=== PATIENT | male | born 1945 | race Caucasian/White ===

== ENCOUNTER 2017-02-15 18:24 | Emergency (ER) | payer OTHER ==
[~2017-02-15 18:24] MED LIST: ALBUAER2 INH; ASPEC81 PO; BRIM0.2S18 OPB; DIPH25CA65 PO; GLC5 PO; INSDGI SC; LATA0.009 OPB; LISI-461 PO; METF1000 PO; OMG3 PO; PARO30TA6 PO; PRLSR20 PO; ROSU20TA PO; [UNRECOGNIZED DRUG - CODE] PO
[2017-02-15 18:29] VITALS: TEMP 36.4
--- NOTE | 2017-02-15 20:02 | DIAGNOSTIC IMAGING REPORT ---
HEAD CT NONCONTRAST CT DOSE: 884.54 mGy.cm HISTORY: Mental status change right hand paresthesias, lightheaded - resolved TECHNIQUE: Multiaxial CT images of the head were performed without the use of intravenous contrast. Comparison: None. Findings: The paranasal sinuses and mastoid air cells are clear. The calvarium and skull base are intact. The ventricles and sulci are within normal limits. There is no mass, hematoma, midline shift, or acute infarct. Impression: No acute intracranial abnormality. Electronically signed by: Oskar Street M.D. 02/15/2017 8:01 PM Dictated Date/Time: 02/15/2017 8:00 PM
[2017-02-15] MEDS ORDERED: INSDGI SC (20:08)
[2017-02-15] MEDS ORDERED: LATA0.009 OP (20:08)
[2017-02-15] MEDS ORDERED: VNTHFA/IN INH (20:08)
[2017-02-15 20:15] LABS: BASO % 0.6 %; BASO ABS # 0.04 K/uL (0-0.2); COMPLETE YES; EOS % 3.6 %; HEMATOCRIT 38.6 % (42-52); LYMPH % 45.5 %; LYMPH ABS # 3.28 K/uL (1.2-3.4); MEAN CELL VOLUME 82.8 fL (80-100); MEAN CORPUSCULAR HEMOGLOBIN 29.6 pg (25-34); MEAN CORPUSCULAR HGB CONC 35.8 g/dl (32-36); MEAN PLATELET VOLUME 10.3 fL (7.4-10.4); MONO % 5.5 %; NEUT % 44.8 %; PLATELET COUNT 158 K/uL (130-400); RED BLOOD COUNT 4.66 M/uL (4.7-6.1); WHITE BLOOD COUNT 7.21 K/uL (4.8-10.8)
[2017-02-15 20:37] LABS: BLOOD UREA NITROGEN 15 mg/dl (7-18); BUN/CREATININE RATIO 10.2 (10-20); CALCIUM 8.8 mg/dl (8.5-10.1); CARBON DIOXIDE 27 mmol/L (21-32); CHLORIDE 98 mmol/L (98-107); GLUCOSE 395 mg/dl (70-99); POTASSIUM 4.4 mmol/L (3.5-5.1); SODIUM 133 mmol/L (136-145)
[2017-02-15] MEDS ORDERED: NovoLIN-R INSULIN PER UNIT CHARGE SC STA (20:40)
--- NOTE | 2017-02-15 20:44 | DIAGNOSTIC IMAGING REPORT ---
LUMBAR SPINE 5 VIEWS HISTORY: Pain acute on chronic low back pain COMPARISON: None. FINDINGS: There is no fracture. No subluxation. Considerable degenerative disc changes throughout. No evidence for compression deformity. IMPRESSION: Considerable degenerative disc change. No acute bony abnormality Electronically signed by: Oskar Street M.D. 02/15/2017 8:43 PM Dictated Date/Time: 02/15/2017 8:42 PM
--- NOTE | 2017-02-15 20:44 | DIAGNOSTIC IMAGING REPORT ---
CERVICAL SPINE 5 VIEWS HISTORY: . Seizures. Neuropathy. neck pain, hand paresthesias COMPARISON: None. FINDINGS: The cervical spine is visualized from C1 through the superior endplate of T1. There is no fracture. Is reversal of the normal cervical curvature. Disc degenerative changes noted throughout. No evidence for compression deformity. Osteophytic narrowing of the bulk of the neuroforamina bilaterally. Prevertebral soft tissues and the atlantodens interval are intact. IMPRESSION: 1. No acute bony abnormality. 2. Considerable degenerative change with moderate to rather significant osteophytic narrowing of the bulk of the neuroforamina bilaterally. 3. Muscle spasm. 4. Calcification of the carotid vasculature Electronically signed by: Oskar Street M.D. 02/15/2017 8:42 PM Dictated Date/Time: 02/15/2017 8:41 PM
--- NOTE | 2017-02-15 20:45 | DIAGNOSTIC IMAGING REPORT ---
RIGHT SHOULDER MIN 2 VIEWS ROUTINE CLINICAL HISTORY: right shoulder pain Right pain COMPARISON: None. DISCUSSION: Moderate degenerative narrowing right glenohumeral joint. Moderate degenerative change acromioclavicular joint. Inferior osteophytic reaction from the tip of the acromion. No evidence for fracture or dislocation. There is no evidence for soft tissue swelling. IMPRESSION: Significant degenerative change. No acute bony abnormality. Electronically signed by: Oskar Street M.D. 02/15/2017 8:43 PM Dictated Date/Time: 02/15/2017 8:43 PM
[2017-02-15 20:50] LABS: BETA-HYDROXYBUTYRATE 1.18 mg/dL (0.2-2.81)
[2017-02-15 21:09] VITALS: BP 118/70; PULSE 88; O2SAT 97
[2017-02-15] MEDS ORDERED: DIAZEPAM 5MG TAB PO STA (21:20)
--- NOTE | 2017-02-15 21:22 | EMERGENCY ROOM VISIT NOTE ---
History Report prepared by Timmy: Melissa Chavez Under the Supervision of: Dr. Emmett Mac M.D. First contact with patient: 18:42 Chief Complaint: ARM PAIN Stated Complaint: NUMBESS IN RT ARM & PINKY,LIGHTHEADED,BACK/NECK History of Present Illness The patient is a 71 year old male who presents to the Emergency Room with complaints of persistent numbness in the last three fingers of his right hand starting this early this morning. He recounts that he was watching TV last night when he began to feel dizzy and lightheaded. This morning he began to experience tingling and numbness in his hand. He also has some abdominal pain on the lower right side. He has chronic lower back pain, right shoulder pain, and neck pain which he is concerned about. He denies any headache, chest pain, shortness of breath, or nausea. He reports that he has not been taking his insulin for the past few days. Before he presented to the ED, he had a bottle of Pepsi. He denies any recent falls or head trauma. He denies any prolonged computer use. He reports he quit drinking 7 weeks ago. Source of History: patient Onset: this morning Position: finger(s) (last three fingers of right hand) Quality: numbness Timing: other (persistent) Associated Symptoms: + abdominal pain (lower right), + back pain (lower), + neck pain, No SOB, No chest pain, No headache, No nausea Note: Pt reports dizziness and lightheadedness. Pt reports chronic right shoulder pain. Review of Systems See HPI for pertinent positives & negatives. A total of 10 systems reviewed and were otherwise negative. Past Medical & Surgical Medical Problems: (1) Diabetes (2) Emphysema, unspecified (3) Hemorrhoids (4) Hiatal hernia Family History Diabetes mellitus FHx: gallbladder disease FHx: heart disease FHx: lung disease Hypertension Kidney disease Kidney stones Social History Smoking Status: Former Smoker Alcohol Use: occasionally Marital Status: in relationship Housing Status: lives with significant other Occupation Status: retired Current/Historical Medications Scheduled Aspirin (Aspirin EC Low Dose), 81 MG PO DAILY Brimonidine Tartrate (Brimonidine Tartrate), 1 DROP OPB AMHS Fish Oil (Fish Oil), 1,000 MG PO BID Glipizide (Glipizide), 5 MG PO BID Insulin Glargine (Lantus), 35 SC QPM Latanoprost (Xalatan 0.005% Oph Lauren), 1 DROPS OP HS Lisinopril (Lisinopril), 10 MG PO BID Metformin Hcl (Glucophage), 1,000 MG PO BIDM Multiple Vitamins W/ Minerals (Daily Vitamin Formula+Min), 1 TAB PO DAILY Omeprazole (Prilosec), 20 MG PO DAILY Paroxetine Hcl (Paroxetine Hcl), 30 MG PO BID Rosuvastatin Calcium (Crestor), 10 MG PO DAILY Scheduled PRN Albuterol Hfa (Ventolin Hfa), 2 PUFF INH QID PRN for Shortness of Breath Diazepam (Valium), 5-10 MG PO Q6H PRN for Pain Diphenhydramine Hcl (Benadryl Allergy), 25 MG PO BID PRN for Itching Allergies Coded Allergies: Atorvastatin (Verified Allergy, Unknown, Face turns red, 10/15/16) Iodinated Diagnostic Agents (Verified Allergy, Unknown, HIVES, 10/15/16) Uncoded Allergies: CONTRASTMEDIA (Allergy, Unknown, HIVES, 01/05/10) Physical Exam Vital Signs Date Time Temp Pulse Resp B/P Pulse Ox O2 Delivery O2 Flow Rate FiO2 02/15/17 21:09 88 20 118/70 97 Room Air 02/15/17 20:08 88 20 126/80 95 Room Air 02/15/17 18:29 36.4 78 20 146/88 93 Room Air Physical Exam GENERAL: Patient is mildly anxious appearing and in no acute distress. HEENT: No acute trauma, normocephalic atraumatic, mucous membranes moist, no nasal congestion, no scleral icterus. NECK: No stridor, no adenopathy, no meningismus, trachea is midline. LUNGS: No dyspnea. Clear to auscultation and equal bilaterally. No wheeze, no rhonchi. HEART: Regular rate and rhythm. No murmurs, rubs, gallops appreciated. ABDOMEN: Soft, nontender, bowel sounds positive, no masses appreciated, no peritonitis. BACK: No midline tenderness, no CVA tenderness EXTREMITIES: Normal motion all extremities, no cyanosis, no edema. NEUROLOGIC: Alert and oriented, no acute motor or sensory deficits, no focal weakness, cranial nerves grossly intact. SKIN: No rash, no jaundice, no diaphoresis. Medical Decision & Procedures ER Provider Diagnostic Interpretation: X ray results are stated below per my interpretation and the radiologist's interpretation. Radiology results and stated below per my review and radiologist interpretation: RIGHT SHOULDER MIN 2 VIEWS ROUTINE CLINICAL HISTORY: right shoulder pain Right pain COMPARISON: None. DISCUSSION: Moderate degenerative narrowing right glenohumeral joint. Moderate degenerative change acromioclavicular joint. Inferior osteophytic reaction from the tip of the acromion. No evidence for fracture or dislocation. There is no evidence for soft tissue swelling. IMPRESSION: Significant degenerative change. No acute bony abnormality. Electronically signed by: Oskar Street M.D. 02/15/2017 8:43 PM Dictated Date/Time: 02/15/2017 8:43 PM LUMBAR SPINE 5 VIEWS HISTORY: Pain acute on chronic low back pain COMPARISON: None. FINDINGS: There is no fracture. No subluxation. Considerable degenerative disc changes throughout. No evidence for compression deformity. IMPRESSION: Considerable degenerative disc change. No acute bony abnormality Electronically signed by: Oskar Street M.D. 02/15/2017 8:43 PM Dictated Date/Time: 02/15/2017 8:[address] NON[address]AST CT DOSE: 884.54 mGy.cm HISTORY: Mental status change right hand paresthesias, lightheaded - resolved TECHNIQUE: Multiaxial CT images of the head were performed without the use of intravenous contrast. Comparison: None. Findings: The paranasal sinuses and mastoid air cells are clear. The calvarium and skull base are intact. The ventricles and sulci are within normal limits. There is no mass, hematoma, midline shift, or acute infarct. Impression: No acute intracranial abnormality. Electronically signed by: Oskar Street M.D. 02/15/2017 8:01 PM Dictated Date/Time: 02/15/2017 8:00 PM CERVICAL SPINE 5 VIEWS HISTORY: . Seizures. Neuropathy. neck pain, hand paresthesias COMPARISON: None. FINDINGS: The cervical spine is visualized from C1 through the superior endplate of T1. There is no fracture. Is reversal of the normal cervical curvature. Disc degenerative changes noted throughout. No evidence for compression deformity. Osteophytic narrowing of the bulk of the neuroforamina bilaterally. Prevertebral soft tissues and the atlantodens interval are intact. IMPRESSION: 1. No acute bony abnormality. 2. Considerable degenerative change with moderate to rather significant osteophytic narrowing of the bulk of the neuroforamina bilaterally. 3. Muscle spasm. 4. Calcification of the carotid vasculature Electronically signed by: Oskar Street M.D. 02/15/2017 8:42 PM Dictated Date/Time: 02/15/2017 8:41 PM Laboratory Results 02/15/17 19:38 Red Blood Count 4.66, Mean Corpuscular Volume 82.8, Mean Corpuscular Hemoglobin 29.6, Mean Corpuscular Hemoglobin Concent 35.8, Mean Platelet Volume 10.3, Neutrophils (%) (Auto) 44.8, Lymphocytes (%) (Auto) 45.5, Monocytes (%) (Auto) 5.5, Eosinophils (%) (Auto) 3.6, Basophils (%) (Auto) 0.6, Neutrophils # (Auto) 3.23, Lymphocytes # (Auto) 3.28, Monocytes # (Auto) 0.40, Eosinophils # (Auto) 0.26, Basophils # (Auto) 0.04 02/15/17 19:38 Test 02/15/17 19:38 White Blood Count 7.21 K/uL (4.8-10.8) Red Blood Count 4.66 M/uL (4.7-6.1) Hemoglobin 13.8 g/dL (14.0-18.0) Hematocrit 38.6 % (42-52) Mean Corpuscular Volume 82.8 fL (80-100) Mean Corpuscular Hemoglobin 29.6 pg (25-34) Mean Corpuscular Hemoglobin Concent 35.8 g/dl (32-36) Platelet Count 158 K/uL (130-400) Mean Platelet Volume 10.3 fL (7.4-10.4) Neutrophils (%) (Auto) 44.8 % Lymphocytes (%) (Auto) 45.5 % Monocytes (%) (Auto) 5.5 % Eosinophils (%) (Auto) 3.6 % Basophils (%) (Auto) 0.6 % Neutrophils # (Auto) 3.23 K/uL (1.4-6.5) Lymphocytes # (Auto) 3.28 K/uL (1.2-3.4) Monocytes # (Auto) 0.40 K/uL (0.11-0.59) Eosinophils # (Auto) 0.26 K/uL (0-0.5) Basophils # (Auto) 0.04 K/uL (0-0.2) RDW Standard Deviation 37.2 fL (36.4-46.3) RDW Coefficient of Variation 12.5 % (11.5-14.5) Immature Granulocyte % (Auto) 0.0 % Immature Granulocyte # (Auto) 0.00 K/uL (0.00-0.02) Anion Gap 8.0 mmol/L (3-11) Estimated GFR () 53.9 Estimated GFR (Non- 46.5 BUN/Creatinine Ratio 10.2 (10-20) Calcium Level 8.8 mg/dl (8.5-10.1) Troponin I < 0.015 ng/ml (0-0.045) Beta-Hydroxybutyric Acid 1.18 mg/dL (0.2-2.81) Laboratory results as reviewed by me. Medications Administered Medications (Trade) Dose Ordered Sig/Zbigniew Route Start Time Stop Time Status Last Admin Dose Admin Insulin Human Regular (novoLIN-R U-100 PER UNIT) 6 units NOW STAT SC 02/15/17 20:40 02/15/17 20:42 DC 02/15/17 20:46 6 UNITS Diazepam (Valium Tab) 10 mg NOW STAT PO 02/15/17 21:20 02/15/17 21:22 DC 02/15/17 21:25 10 MG ED Course 1843: The patient was evaluated in room B4. A complete history and physical exam was performed. 1929: I reevaluated the patient. He is feeling OK. 2039: Insulin Human Regular 6 units SC. 2117: Reevaluated the patient. Discussed results and discharge instructions: He verbalized understanding and agreement. The patient is ready for discharge. 2119: Diazepam 10 mg PO. Medical Decision 71 yr old male with paresthesias in right 4th/5th digit which has actually started improving. With exam suspect cervical related. With severe hyperglycemia (admits not taking his insulin and drinking sugar) I am loath to treat with steroids thus as getting better will hold off for now. Already takes NSAIDs. He has significant degenerative and arthritic changes throughout neck and low back without acute findings. He has negative CT head and without headache, acute neuro deficits I do not feel he has to be admitted for stroke rule out at this time as long as he follows up with PCP and is aware of symptoms to monitor for. He had 5 min of lightheaded last night, which I suspect was BG related as not ACS with neg EKG and neg Trop now. She is not interested in staying in hospital. For muscle spasms in back/neck will give Valium PRN nights limited as he already takes large amounts benadryl for itching and would prefer to avoid Flexeril in him. Impression Primary Impression: Paresthesias in right hand Additional Impressions: Cervical osteoarthritis Osteoarthritis of lumbar spine Hyperglycemia Scribe Attestation The scribe's documentation has been prepared under my direction and personally reviewed by me in its entirety. I confirm that the note above accurately reflects all work, treatment, procedures, and medical decision making performed by me. Departure Information Dispostion Home / Self-Care Prescriptions Diazepam (Valium) 5 Mg Tab 5-10 MG PO Q6H Y for Pain, #15 TAB Prov: Emmett Mac M.D. 02/15/17 Referrals Rojelio Abdul M.D. (PCP) Patient Instructions My [facility] Additional Instructions Return immediately if unable to use arm, legs or other weakness or if headache, slurred speech, confusion, or other concerns. Follow up with your primary care provider. Take you Insulin as prescribed. You have received a benzodiazepine medication prescription. These medications may cause drowsiness and should not be used with other sedative medications. Do not drive, drink alcohol, perform dangerous activities, nor make important decisions after taking these medications. electrician helper powerhouse use or inappropriate use may lead to addiction. Problem Qualifiers Additional Impressions: Cervical osteoarthritis Spinal osteoarthritis complication: unspecified spinal osteoarthritis Qualified Codes: M47.812 - Spondylosis without myelopathy or radiculopathy, cervical region Osteoarthritis of lumbar spine Spinal osteoarthritis complication: unspecified spinal osteoarthritis Qualified Codes: M47.816 - Spondylosis without myelopathy or radiculopathy, lumbar region
[2017-02-15] MEDS ORDERED: DIAZ-165 PO (21:23)
== END 2017-02-15 21:33 | disposition home or self-care (01) ==
LOC: C.EDB 18:25
DX: R20.2 Paresthesia of skin (principal); M19.90 Unspecified osteoarthritis, unspecified site; E11.65 Type 2 diabetes mellitus with hyperglycemia; J43.9 Emphysema, unspecified; Z87.891 Personal history of nicotine dependence; Z79.4 Long term (current) use of insulin; Z79.82 Long term (current) use of aspirin; Z79.899 Other long term (current) drug therapy; Z88.8 Allergy status to other drugs, medicaments and biological substances; Z91.041 Radiographic dye allergy status; Z83.3 Family history of diabetes mellitus; Z83.79 Family history of other diseases of the digestive system; Z82.49 Family history of ischemic heart disease and other diseases of the circulatory system; Z84.1 Family history of disorders of kidney and ureter

== ENCOUNTER 2017-03-18 19:09 | Emergency (ER) | payer OTHER ==
[~2017-03-18] VITALS: Ht 167.6 cm; Wt 109.6 kg
[2017-03-18 19:09] VITALS: TEMP 36.7; Ht 167.6 cm; Wt 109.6 kg
[~2017-03-18 19:09] MED LIST changes: -ALBUAER2 INH; +DIAZ-165 PO; +LATA0.009 OP; -LATA0.009 OPB; +VNTHFA/IN INH
[2017-03-18 19:16] VITALS: O2SAT 98
[2017-03-18 19:33] LABS: BASO % 0.6 %; BASO ABS # 0.04 K/uL (0-0.2); COMPLETE YES; HEMATOCRIT 36.8 % (42-52); IG% 0.3 %; LYMPH % 39.9 %; LYMPH ABS # 2.53 K/uL (1.2-3.4); MEAN CORPUSCULAR HEMOGLOBIN 30.3 pg (25-34); MEAN CORPUSCULAR HGB CONC 34.8 g/dl (32-36); NEUT % 48.2 %; PLATELET COUNT 133 K/uL (130-400); RED BLOOD COUNT 4.23 M/uL (4.7-6.1); WHITE BLOOD COUNT 6.34 K/uL (4.8-10.8)
[2017-03-18 19:53] LABS: BUN/CREATININE RATIO 8.8 (10-20); CALCIUM 8.1 mg/dl (8.5-10.1); CREATININE 1.4 mg/dl (0.60-1.40); POTASSIUM 4.4 mmol/L (3.5-5.1)
[2017-03-18 20:02] LABS: CKMB/CK RATIO 1.7 (0-3.0); THYROID STIMULATING HORMONE 1.34 uIu/ml (0.300-4.500)
[2017-03-18 20:03] LABS: URINE APPEARANCE CLEAR (CLEAR); URINE BILIRUBIN NEG (NEG); URINE COLOR YELLOW; URINE EPITHELIAL CELL AUTO 0-5 /lpf (0-5); URINE NITRITE NEG (NEG); URINE PH 6.5 (4.5-7.5); URINE SPECIFIC GRAVITY 1.005 (1.000-1.030); UROBILINOGEN NEG (NEG); ZZUR CULT IF INDIC CLEAN CATCH NO
[2017-03-18 20:04] LABS: MANUAL MICROSCOPIC REQUIRED? NO; REVIEW REQ? NO
--- NOTE | 2017-03-18 20:08 | EMERGENCY ROOM VISIT NOTE ---
History Report prepared by Timmy: Mathew Navarro Under the Supervision of: Dr. Sergey Lewis D.O. First contact with patient: 19:26 Chief Complaint: WEAKNESS Stated Complaint: Code purple in Cafeteria Nursing Triage Summary: Patient presents to ED via WC from hospital cafe for evaluation of weakness and generalized illness that began a few days ago. C/o sinus pressure/swelling, PROTECTION MGR cough, and SOB. Denies cardiac hx. History of Present Illness The patient is a 71 year old male who presents to the Emergency Room with complaints of an episode of weakness occurring earlier today. Per the nurse, he was visiting his in the hospital and required a code purple to be called while in the cafeteria. He has been weak today, and generally ill the last few days. He complains of sinus pressure, a cough, and shortness of breath. Per the patient, he reports having a cough and shortness of breath for a couple days, and notes feeling more tired than usual this morning, though he adds that he generally does not sleep well. He confirms that he was visiting his fiance in the hospital. The patient indicates that his cheeks have been red and puffed recently. He reports he has had acute sinusitis. Source of History: patient, nursing staff Onset: today Position: other (global) Quality: other (weakness) Timing: other (episode) Associated Symptoms: + SOB, + cough, + fatigue Note: The patient reports having sinus pressure. Review of Systems See HPI for pertinent positives & negatives. A total of 10 systems reviewed and were otherwise negative. Past Medical & Surgical Medical Problems: (1) Diabetes (2) Emphysema, unspecified (3) Hemorrhoids (4) Hiatal hernia Family History Diabetes mellitus FHx: gallbladder disease FHx: heart disease FHx: lung disease Hypertension Kidney disease Kidney stones Social History Smoking Status: Never Smoker Alcohol Use: occasionally Marital Status: in relationship Housing Status: lives with significant other Occupation Status: retired Current/Historical Medications Scheduled Aspirin (Aspirin EC Low Dose), 81 MG PO DAILY Fish Oil (Fish Oil), 1,000 MG PO BID Glipizide (Glipizide), 5 MG PO BID Insulin Glargine (Lantus), 35 SC QPM Latanoprost (Xalatan 0.005% Oph Lauren), 1 DROPS OP HS Lisinopril (Lisinopril), 10 MG PO QAM Metformin Hcl (Glucophage), 1,000 MG PO BIDM Multiple Vitamins W/ Minerals (Daily Vitamin Formula+Min), 1 TAB PO DAILY Omeprazole (Prilosec), 20 MG PO DAILY Paroxetine Hcl (Paroxetine Hcl), 30 MG PO BID Rosuvastatin Calcium (Crestor), 10 MG PO DAILY Scheduled PRN Albuterol Hfa (Ventolin Hfa), 2 PUFF INH QID PRN for Shortness of Breath Diphenhydramine Hcl (Benadryl Allergy), 25 MG PO BID PRN for Itching Allergies Coded Allergies: Atorvastatin (Verified Allergy, Unknown, Face turns red, 03/18/17) Iodinated Diagnostic Agents (Verified Allergy, Unknown, HIVES, 03/18/17) Uncoded Allergies: CONTRASTMEDIA (Allergy, Unknown, HIVES, 01/05/10) Physical Exam Vital Signs Date Time Temp Pulse Resp B/P Pulse Ox O2 Delivery O2 Flow Rate FiO2 03/18/17 19:29 71 16 155/91 98 Room Air 72 161/88 71 147/78 03/18/17 19:16 98 Room Air 03/18/17 19:16 74 03/18/17 19:09 36.7 78 18 178/90 93 Room Air Physical Exam CONSTITUTIONAL/VITAL SIGNS: Reviewed / noted above. GENERAL: Non-toxic in appearance. INTEGUMENTARY: Warm, dry, and Onycha. HEAD: Normocephalic. EYES: without scleral icterus or trauma. ENT/OROPHARYNX: clear and moist. LYMPHADENOPATHY/NECK: Is supple without lymphadenopathy or meningismus. RESPIRATORY: Lungs clear and equal. CARDIOVASCULAR: Regular rate and rhythm. GI/ABDOMEN: Soft and nontender. No organomegaly or pulsatile mass. No rebound or guarding. Normal bowel sounds. EXTREMITIES: Warm and well perfused. BACK: No CVA tenderness. NEUROLOGICAL: Intact without focal deficits. PSYCHIATRIC: normal affect. MUSCULOSKELETAL: Normally developed with good muscle tone. Medical Decision & Procedures ER Provider Diagnostic Interpretation: Radiology results as stated below per my review and radiologist interpretation: SINGLE VIEW CHEST FINDINGS: An AP, portable, upright chest radiograph is compared to chest x-ray and chest CT dated 07/22/2016. The examination is degraded by portable technique and apical lordotic positioning. The heart is enlarged. The pulmonary vasculature is noncongested. Emphysema and chronic interstitial thickening are similar to previous. There is chronic elevation of the right hemidiaphragm and bibasilar atelectasis. No airspace consolidation is seen typical for pneumonia and there is no large pleural effusion. No pneumothorax is seen. The skeletal structures are osteopenic. The bony thorax is grossly intact. IMPRESSION: Cardiomegaly and emphysema with no acute cardiopulmonary abnormality. Electronically signed by: Dima Carter M.D. 03/18/2017 8:06 PM Dictated Date/Time: 03/18/2017 8:05 PM Laboratory Results 03/18/17 19:20 Red Blood Count 4.23, Mean Corpuscular Volume 87.0, Mean Corpuscular Hemoglobin 30.3, Mean Corpuscular Hemoglobin Concent 34.8, Mean Platelet Volume 10.0, Neutrophils (%) (Auto) 48.2, Lymphocytes (%) (Auto) 39.9, Monocytes (%) (Auto) 6.0, Eosinophils (%) (Auto) 5.0, Basophils (%) (Auto) 0.6, Neutrophils # (Auto) 3.05, Lymphocytes # (Auto) 2.53, Monocytes # (Auto) 0.38, Eosinophils # (Auto) 0.32, Basophils # (Auto) 0.04 03/18/17 19:20 Test 03/18/17 19:20 03/18/17 19:25 03/18/17 19:40 White Blood Count 6.34 K/uL (4.8-10.8) Red Blood Count 4.23 M/uL (4.7-6.1) Hemoglobin 12.8 g/dL (14.0-18.0) Hematocrit 36.8 % (42-52) Mean Corpuscular Volume 87.0 fL (80-100) Mean Corpuscular Hemoglobin 30.3 pg (25-34) Mean Corpuscular Hemoglobin Concent 34.8 g/dl (32-36) Platelet Count 133 K/uL (130-400) Mean Platelet Volume 10.0 fL (7.4-10.4) Neutrophils (%) (Auto) 48.2 % Lymphocytes (%) (Auto) 39.9 % Monocytes (%) (Auto) 6.0 % Eosinophils (%) (Auto) 5.0 % Basophils (%) (Auto) 0.6 % Neutrophils # (Auto) 3.05 K/uL (1.4-6.5) Lymphocytes # (Auto) 2.53 K/uL (1.2-3.4) Monocytes # (Auto) 0.38 K/uL (0.11-0.59) Eosinophils # (Auto) 0.32 K/uL (0-0.5) Basophils # (Auto) 0.04 K/uL (0-0.2) RDW Standard Deviation 41.8 fL (36.4-46.3) RDW Coefficient of Variation 13.0 % (11.5-14.5) Immature Granulocyte % (Auto) 0.3 % Immature Granulocyte # (Auto) 0.02 K/uL (0.00-0.02) Anion Gap 7.0 mmol/L (3-11) Est Creatinine Clear Calc Drug Dose 57.0 ml/min Estimated GFR () 58.6 Estimated GFR (Non- 50.5 BUN/Creatinine Ratio 8.8 (10-20) Calcium Level 8.1 mg/dl (8.5-10.1) Total Bilirubin 0.4 mg/dl (0.2-1) Aspartate Amino Transf (AST/SGOT) 37 U/L (15-37) Alanine Aminotransferase (ALT/SGPT) 50 U/L (12-78) Alkaline Phosphatase 84 U/L (45-117) Total Creatine Kinase 170 U/L (39-308) Creatine Kinase MB 2.9 ng/ml (0.5-3.6) Creatine Kinase MB Ratio 1.7 (0-3.0) Total Protein 7.3 gm/dl (6.4-8.2) Albumin 3.6 gm/dl (3.4-5.0) Globulin 3.7 gm/dl (2.5-4.0) Albumin/Globulin Ratio 1.0 (0.9-2) Thyroid Stimulating Hormone (TSH) 1.340 uIu/ml (0.300-4.500) Bedside Troponin I 0.000 ng/ml (0-0.045) Urine Color YELLOW Urine Appearance CLEAR (CLEAR) Urine pH 6.5 (4.5-7.5) Urine Specific [place] 1.005 (1.000-1.030) Urine Protein NEG (NEG) Urine Glucose (UA) NEG (NEG) Urine Ketones NEG (NEG) Urine Occult Blood NEG (NEG) Urine Nitrite NEG (NEG) Urine Bilirubin NEG (NEG) Urine Urobilinogen NEG (NEG) Urine Leukocyte Esterase NEG (NEG) Urine WBC (Auto) 0 /hpf (0-5) Urine RBC (Auto) 0-4 /hpf (0-4) Urine Hyaline Casts (Auto) 0 /lpf (0-5) Urine Epithelial Cells (Auto) 0-5 /lpf (0-5) Urine Bacteria (Auto) NEG (NEG) Laboratory results as stated above per my review. ECG Indication: weakness Rate (beats per minute): 72 Rhythm: normal sinus Findings: no acute ischemic change, no ectopy ED Course 1939: Previous medical records were reviewed. The patient was evaluated in room C2B. A complete history and physical examination was performed. 2104: On reevaluation, the patient is doing well. I discussed the results and findings with the patient. He verbalized agreement of the treatment plan. The patient was discharged home. Medical Decision Differential includes acute coronary syndrome, myocardial infarction, CVA, TIA, anemia, infection, pneumonia, UTI, pyelonephritis, poor nutrition, dehydration, electrolyte disturbance,hypoglycemia. This is a 71-year-old male who presents to the ED with chief complaint of generalized weakness. The patient reports some sinus pressure, cough and shortness of breath. He states that he felt tired this morning. He was in the hospital visiting his fiance. He was down in the cafeteria getting something to eat. He was feeling weak and the patient was brought up for evaluation. His vital signs are stable. His physical exam was unremarkable. The patient's exam did not reveal any acute distress. His lungs were clear. His breathing is comfortable. He is no rashes. His abdomen soft and nontender. Orthostatic vital signs are normal. His otherwise standard vital signs were normal. CBC is normal. Troponin was negative. Complete metabolic panel was unremarkable. Urine did not show infection or ketones. TSH was normal. EKG showed a sinus rhythm at a rate of 72 without acute injury or ectopy. The patient was told results the test. He is felt to be stable for discharge and outpatient follow- up. Impression Primary Impression: Weakness Additional Impression: Cough Scribe Attestation The scribe's documentation has been prepared under my direction and personally reviewed by me in its entirety. I confirm that the note above accurately reflects all work, treatment, procedures, and medical decision making performed by me. Departure Information Dispostion Home / Self-Care Referrals Rojelio Abdul M.D. (PCP) Patient Instructions ED Weakness [facility], My [facility] Additional Instructions Follow-up with your doctor for further care and evaluation in 1-2 days. Return to the emergency department for worsening or new symptoms or any concerns. You have been examined and treated today on an emergency basis only. This is not a substitute for, or an effort to provide, complete comprehensive medical care. It is impossible to recognize and treat all injuries or illnesses in a single emergency department visit. It is therefore important that you follow up closely with your doctor. Call as soon as possible for an appointment. Problem Qualifiers
[2017-03-18 21:14] VITALS: BP 142/81; PULSE 71; O2SAT 98
[2017-03-18] MEDS ORDERED: PAROXETINE 20 MG TAB PO ONE (21:15)
== END 2017-03-18 21:15 | disposition home or self-care (01) ==
LOC: EDSEX 19:09 → EDBD 19:09 → C.EDC 19:10
DX: R53.1 Weakness (principal); R05 Cough; R06.02 Shortness of breath; J86.9 Pyothorax without fistula; E11.9 Type 2 diabetes mellitus without complications; Z79.4 Long term (current) use of insulin; Z79.82 Long term (current) use of aspirin; Z79.899 Other long term (current) drug therapy; Z87.19 Personal history of other diseases of the digestive system; Z82.49 Family history of ischemic heart disease and other diseases of the circulatory system; Z83.3 Family history of diabetes mellitus; Z83.6 Family history of other diseases of the respiratory system; Z83.79 Family history of other diseases of the digestive system; Z84.1 Family history of disorders of kidney and ureter

== ENCOUNTER 2017-05-13 01:47 | Emergency (ER) | payer OTHER ==
[~2017-05-13] VITALS: Ht 167.6 cm; Wt 106.2 kg
[~2017-05-13 01:47] MED LIST changes: -BRIM0.2S18 OPB; -DIAZ-165 PO
[2017-05-13 01:51] VITALS: TEMP 36.5; Ht 167.6 cm; Wt 106.2 kg
--- NOTE | 2017-05-13 02:26 | EMERGENCY ROOM VISIT NOTE ---
History Report prepared by Timmy: Arlene Kumar Under the Supervision of: Dr. Emmett Mac M.D. First contact with patient: 02:14 Chief Complaint: DENTAL PAIN Stated Complaint: TOOTH INFECTION SWOLLEN/RED CHEEK,RT INDEX FINGER History of Present Illness The patient is a 71 year old male who presents to the Emergency Room with complaints of pain and swelling of the right index finger that started a few months ago and worsening right cheek swelling that started this past week. He mentions that his friend, who he shoots pool with, was concerned that his right finger was infected by a Bot fly and that he should see a healthcare professional. Patient also noted that he thinks he has an infected tooth, which is causing the right cheek swelling. The patient denies fevers, chills, nausea, vomiting, and any additional associated symptoms. Source of History: patient Onset: A few months ago/ this past week Position: other (Right finger and right cheek ) Timing: worsening Modifying Factors (Worsening): other (None) Associated Symptoms: No fevers, No chills, No nausea, No vomiting Review of Systems See HPI for pertinent positives & negatives. A total of 6 systems reviewed and were otherwise negative. Past Medical & Surgical Medical Problems: (1) Diabetes (2) Emphysema, unspecified (3) Hemorrhoids (4) Hiatal hernia Family History Diabetes mellitus FHx: gallbladder disease FHx: heart disease FHx: lung disease Hypertension Kidney disease Kidney stones Social History Smoking Status: Current Every Day Smoker Alcohol Use: occasionally Marital Status: in relationship Housing Status: lives with significant other Occupation Status: retired Current/Historical Medications Scheduled Aspirin (Aspirin EC Low Dose), 81 MG PO DAILY Fish Oil (Fish Oil), 1,000 MG PO BID Glipizide (Glipizide), 5 MG PO BID Insulin Glargine (Lantus), 35 SC QPM Latanoprost (Xalatan 0.005% Oph Lauren), 1 DROPS OP HS Lisinopril (Lisinopril), 10 MG PO QAM Metformin Hcl (Glucophage), 1,000 MG PO BIDM Multiple Vitamins W/ Minerals (Daily Vitamin Formula+Min), 1 TAB PO DAILY Omeprazole (Prilosec), 20 MG PO DAILY Paroxetine Hcl (Paroxetine Hcl), 30 MG PO BID Penicillin V Potassium (Veetids), 500 MG PO QID Rosuvastatin Calcium (Crestor), 10 MG PO DAILY Scheduled PRN Albuterol Hfa (Ventolin Hfa), 2 PUFF INH QID PRN for Shortness of Breath Diphenhydramine Hcl (Benadryl Allergy), 25 MG PO BID PRN for Itching Allergies Coded Allergies: Atorvastatin (Verified Allergy, Unknown, Face turns red, 05/13/17) Iodinated Diagnostic Agents (Verified Allergy, Unknown, HIVES, 05/13/17) Physical Exam Vital Signs Date Time Temp Pulse Resp B/P (MAP) Pulse Ox O2 Delivery O2 Flow Rate FiO2 05/13/17 02:37 76 18 155/81 95 05/13/17 01:51 36.5 74 18 148/73 97 Room Air Physical Exam GENERAL: Patient is well appearing and in no acute distress. HEENT: Mildly erythematous right maxillary sinus, tender to palpation. No fluctuance nor abscess appreciated. Single carious tooth right upper gumline with surrounding erythema, tender to palpation. No acute trauma, normocephalic atraumatic, mucous membranes moist, no nasal congestion, no scleral icterus. NECK: No stridor, no adenopathy, no meningismus, trachea is midline. LUNGS: No dyspnea. Clear to auscultation and equal bilaterally. No wheeze, no rhonchi. HEART: Regular rate and rhythm. No murmurs, rubs, gallops appreciated. EXTREMITIES: Nodulous joints consistent with arthritic disease. Large nodule over second digit medial DIP joint with some skin breakdown. No fluctuance, erythema, or drainage. Normal motion all extremities, no cyanosis. NEUROLOGIC: Alert and oriented, no acute motor or sensory deficits, no focal weakness, cranial nerves grossly intact. SKIN: No rash, no jaundice, no diaphoresis. Medical Decision & Procedures Medications Administered Medications (Trade) Dose Ordered Sig/Zbigniew Route Start Time Stop Time Status Last Admin Dose Admin Penicillin V Potassium (Veetids Tab) 500 mg NOW ONCE PO 05/13/17 02:30 05/13/17 02:31 DC 05/13/17 02:32 500 MG ED Course 0216: The patient was evaluated in room B4. A complete history and physical exam was performed. 0230: Ordered Penicillin V Potassium 500 mg PO. 0235: Discussed results and discharge instructions: He verbalized understanding and agreement. The patient is ready for discharge. Medical Decision Medication Reconciliation: I attest that I have personally reviewed the patient 's current medication list. Reviewed elevated BP and need to follow up with PCP to have it rechecked. 71 yr old male with dental infection and some mild facial cellulitis though no abscess nor ludwigs nor need for imaging at this time. PNC and outpatient follow up. Has many nodules on fingers from arthritis though one over right 2nd digit is not having some skin breakdown/discoloration. No evidence abscess , infection, etc and I do not feel it requires attempt at drainage as I suspect it is just calcification underneath. Will have him follow up with local ortho hand. Aware of symptoms requiring RTED. Stable and comfortable with this plan. Impression Primary Impression: Infected dental caries Additional Impression: Nodule of finger of right hand Scribe Attestation The scribe's documentation has been prepared under my direction and personally reviewed by me in its entirety. I confirm that the note above accurately reflects all work, treatment, procedures, and medical decision making performed by me. Departure Information Dispostion Home / Self-Care Prescriptions Penicillin V Potassium (Veetids) 500 Mg Tab 500 MG PO QID, #40 TAB Prov: Emmett Mac M.D. 05/13/17 Referrals Rojelio Abdul M.D. (PCP) Simone Crawford MD Forms HOME CARE DOCUMENTATION FORM, IMPORTANT VISIT INFORMATION Patient Instructions Dental Abscess, My [facility] Problem Qualifiers
[2017-05-13] MEDS ORDERED: PENI-82 PO (02:28)
[2017-05-13] MEDS ORDERED: PENICILLIN V POTASSIUM 250 MG TAB PO ONE (02:30)
[2017-05-13 02:37] VITALS: BP 155/81; PULSE 76; O2SAT 95
== END 2017-05-13 02:38 | disposition home or self-care (01) ==
LOC: C.EDB 01:49
DX: K02.9 Dental caries, unspecified (principal); R22.9 Localized swelling, mass and lump, unspecified; L03.211 Cellulitis of face; E11.9 Type 2 diabetes mellitus without complications; J43.9 Emphysema, unspecified; Z79.82 Long term (current) use of aspirin; Z79.4 Long term (current) use of insulin; Z79.84 Long term (current) use of oral hypoglycemic drugs; Z79.899 Other long term (current) drug therapy; Z88.8 Allergy status to other drugs, medicaments and biological substances; Z91.041 Radiographic dye allergy status; Z83.3 Family history of diabetes mellitus; Z83.79 Family history of other diseases of the digestive system; Z82.49 Family history of ischemic heart disease and other diseases of the circulatory system; Z84.1 Family history of disorders of kidney and ureter